=== PATIENT | male | born 1950 | race Caucasian/White ===

== ENCOUNTER 2020-09-13 19:21 | Inpatient (IN) | payer MEDICARE, OTHER ==
[2020-09-13] MEDS ORDERED: MORPHINE SULFATE 10 MG/ML INJ IV ONE (20:54)
[2020-09-13] MEDS ORDERED: ONDANSETRON HCL INJ/PF 4 MG/2 ML SDV IV ONE (20:54)
--- NOTE | 2020-09-13 20:55 | ER Document Report ---
ED Medical Screen (RME) - General Chief Complaint: Abdominal Pain Stated Complaint: ABDOMINAL PAIN Time Seen by Provider: 09/13/20 20:50 Notes: HPI: 70-year-old male who had recent cholecystectomy here at the hospital with Dr. Frank presenting for evaluation of worsened epigastric right upper quadrant pain over the last 24 hours. No chest pain shortness of breath. No fever nausea or vomiting. Patient was concerned about the increase in discomfort so came back in for reevaluation PHYSICAL EXAMINATION: Surgical scars on the abdomen appear intact without erythema. There is mild tenderness to the epigastric region and right upper quadrant on palpation I have greeted and performed a rapid initial assessment of this patient. A comprehensive ED assessment and evaluation of the patient, analysis of test results and completion of medical decision making process will be conducted by an additional ED providers. TRAVEL OUTSIDE OF THE [place] IN LAST 30 DAYS: No - Related Data Allergies/Adverse Reactions: hydrochlorothiazide Allergy (Verified 09/13/20 20:45) Home Medications: allpurinol, chlorthalidone, hydrocodonesaratan Past Medical History - Past Medical History Cardiac Medical History: Reports: Hx Hypertension GI Medical History: Reports: Hx Gastroesophageal Reflux Disease Psychiatric Medical History: Denies: Hx Depression Past Surgical History: Reports: Hx Appendectomy Physical Exam - Vital signs Vitals: Temp Pulse Resp BP Pulse Ox 97.7 F 87 16 107/68 97 09/13/20 19:33 09/13/20 19:33 09/13/20 19:33 09/13/20 19:33 09/13/20 19:33 Course - Vital Signs Vital signs: Temp Pulse Resp BP Pulse Ox 97.7 F 87 16 107/68 97 09/13/20 19:33 09/13/20 19:33 09/13/20 19:33 09/13/20 19:33 09/13/20 19:33
[2020-09-13 21:54] LABS: HEMATOCRIT 42.8 % (37.9-51.0); HEMOGLOBIN 14.1 g/dL (13.5-17.0); MEAN CORPUSCULAR HEMOGLOBIN 29.4 pg (27.0-33.4); MEAN CORPUSCULAR HGB CONC 33.1 g/dL (32.0-36.0); MEAN CORPUSCULAR VOLUME 89 fl (80-97); PLATELET COUNT 387 10^3/uL (150-450); RED BLOOD COUNT 4.81 10^6/uL (4.35-5.55); RED CELL DISTRIBUTION WIDTH 14.5 % (11.5-14.0); WHITE BLOOD COUNT 18.2 10^3/uL (4.0-10.5)
[2020-09-13 21:59] LABS: APPEARANCE,URINE SLIGHTLY-CLOUDY; BILIRUBIN,URINE NEGATIVE (NEGATIVE); COLOR,URINE YELLOW; GLUCOSE, URINE NEGATIVE (NEGATIVE); KETONES,URINE NEGATIVE (NEGATIVE); LEUKOCYTE ESTERASE,URINE NEGATIVE (NEGATIVE); NITRITE,URINE NEGATIVE (NEGATIVE); PROTEIN,URINE NEGATIVE (NEGATIVE); URINE SPECIFIC GRAVITY 1.018
[2020-09-13 22:10] LABS: ABSOLUTE LYMPHOCYTES# (MANUAL) 1.3 10^3/uL (0.5-4.7); ABSOLUTE MONOCYTES # (MANUAL) 0.5 10^3/uL (0.1-1.4); BASOPHILS % (MANUAL) 0 % (0-2); EOSINOPHILS % (MANUAL) 0 % (0-6); LYMPHOCYTES % (MANUAL) 7 % (13-45); MONOCYTES % (MANUAL) 3 % (3-13); SEGMENTED NEUTROPHILS % (MAN) 90 % (42-78); TOTAL CELLS COUNTED 100
[2020-09-13 22:11] LABS: ALBUMIN 4.2 g/dL (3.5-5.0); ALKALINE PHOSPHATASE 542 U/L (38-126); ANION GAP 10 (5-19); ASPARTATE AMINO TRANSFERASE 719 U/L (17-59); BILIRUBIN,DIRECT 1.1 mg/dL (0.0-0.4); BILIRUBIN,TOTAL 1.7 mg/dL (0.2-1.3); BLOOD UREA NITROGEN 33 mg/dL (7-20); CALCIUM 9.8 mg/dL (8.4-10.2); CARBON DIOXIDE 30 mmol/L (22-30); CHLORIDE 94 mmol/L (98-107); GLUCOSE 152 mg/dL (75-110); POTASSIUM 5.4 mmol/L (3.6-5.0); TOTAL PROTEIN 8.1 g/dL (6.3-8.2)
[2020-09-13 22:17] LABS: ANISOCYTOSIS SLIGHT; PLATELET COMMENT ADEQUATE; TOXIC GRANULATION SLIGHT
[2020-09-13] MEDS ORDERED: PIPERACILLIN/TAZOBACTAM 3.375 GM VIAL IV ONE (23:20)
--- NOTE | 2020-09-13 23:42 | ER Document Report ---
ED General - General Chief Complaint: Abdominal Pain Stated Complaint: ABDOMINAL PAIN Time Seen by Provider: 09/13/20 20:50 TRAVEL OUTSIDE OF THE [place] IN LAST 30 DAYS: No - HPI Notes: Patient is a 70-year-old male presents emergency department for evaluation of epigastric and right upper quadrant pain. The patient was admitted to the hospital, discharged on 04 September, after suffering from acute gangrenous cholecystitis and pancreatitis. He states he went home and his course has been primarily uneventful. He has had some intermittent nausea but his pain is been generally improving. This evening he had a hamburger and he started having significant epigastric and right upper quadrant pain. It does not radiate. He has had some "cold sweats" but no juan fevers to his knowledge. Nausea with no episodes of emesis. Mildly diminished bowel movements but otherwise unremarkable. No diarrhea. No melena or hematochezia. He is still urinating. He did have a ZUNILDA drain in place that was removed and outpatient follow-up. He states his pain does feel similar to when he had pancreatitis recently. - Related Data Allergies/Adverse Reactions: hydrochlorothiazide Allergy (Verified 09/13/20 20:45) Home Medications: allpurinol, chlorthalidone, hydrocodone, losaratan Past Medical History - General Information source: Patient - Social History Smoking Status: Never Smoker Family History: None, Reviewed & Not Pertinent Patient has homicidal ideation: No - Past Medical History Cardiac Medical History: Reports: Hx Hypertension GI Medical History: Reports: Hx Gastroesophageal Reflux Disease Musculoskeletal Medical History: Reports Hx Gout Psychiatric Medical History: Denies: Hx Depression Past Surgical History: Reports: Hx Appendectomy, Hx Cholecystectomy Review of Systems - Review of Systems Constitutional: See HPI EENT: No symptoms reported Cardiovascular: No symptoms reported Respiratory: No symptoms reported Gastrointestinal: See HPI Genitourinary: No symptoms reported Musculoskeletal: No symptoms reported Skin: No symptoms reported Neurological/Psychological: No symptoms reported Physical Exam - Vital signs Vitals: Temp Pulse Resp BP Pulse Ox 97.7 F 87 16 107/68 97 09/13/20 19:33 09/13/20 19:33 09/13/20 19:33 09/13/20 19:33 09/13/20 19:33 - Notes Notes: Vital signs reviewed, please refer to chart. Head is normocephalic, atraumatic. Pupils equal round, reactive to light. Neck is supple without meningismus. Heart is regular rate and rhythm. Lungs are clear to auscultation bilaterally. Abdomen is soft, moderately tender in the epigastrium and right upper quadrant without rebound or guarding, normoactive bowel sounds throughout. He has a bandage in place over the right lower quadrant, site of the former Richie-Marcial drain. Otherwise laparoscopic surgical wounds are well approximated and without signs of infection. Extremities without cyanosis, clubbing. Posterior calves are nontender. Peripheral pulses are equal. Skin is warm and dry. Patient is awake, alert, neurological exam is nonfocal. Course - Re-evaluation Re-evalutation: 09/13/20 23:43 Patient presents emergency department for evaluation. He was initially seen through triage. Laboratory investigations and imaging were ordered. Been already given pain medication, nausea medication. His laboratory investigations reveal findings consistent with new acute pancreatitis. Given this information, I did cancel the oral contrast for his IV and oral contrasted CT scan. He was given IV fluids. CT scan is still pending. Given his 18,000 white count, I did cover the patient with antibiotics. Patient is administered his first dose of Zosyn here, which he has tolerated the past. He is currently stable, awaiting CT results. 09/14/20 01:46 CT results show pancreatitis, duodenitis, small amount of fluid in the gallbladder fossa. I discussed the lab findings with Dr. Cleary at 0142. He is concerned that the lab findings are consistent with retained CBD stone. I will notify the patient, contact outside facilities for transfer and evaluation. 09/14/20 02:21 [facility] is not currently excepting medical patients secondary to volume issues. Will contact further facilities. 09/14/20 02:22 09/14/20 02:[address] [facility]. 09/14/20 02:[address] Velásquez, internal medicine physician at [facility]. He agrees that the patient would need evaluated by the biliary service, but unfortunately they do not have any bed availability. He recommends contacting the facility again between 8 and 9 AM. I am currently awaiting a phone call back from [facility]. 09/14/20 02:[address] Jerez, chlorinator on at [facility]. I discussed this patient a great length with her. She states that she is concerned that the patient does not necessarily meet criteria for direct diagnosis of a CBD stone. She recommends MRCP. She does state that the patient could be accepted for transfer to [facility] if the stone is proven to be present. I will order the MRI for the morning. The patient will be kept n.p.o. IV fluids and as needed pain medications ordered. Unfortunately, I agree that the patient will likely require direct visualization of the stone before he can meet transfer criteria. Care of this patient will be turned over to the next ED provider. Patient is notified of changes. 09/15/20 01:58 From chart review, patient's MRI failed to show any sign of CBD stone. Patient admitted to surgicalist service. - Vital Signs Vital signs: Temp Pulse Resp BP Pulse Ox 97.7 F 63 20 107/69 96 09/15/20 00:31 09/15/20 00:31 09/15/20 00:31 09/15/20 00:31 09/15/20 00:31 - Laboratory Results Result Diagrams: 09/13/20 21:18 09/13/20 21:18 Laboratory Results Interpreted: 09/13/20 09/13/20 09/13/20 21:18 21:18 21:30 WBC 18.2 H RDW 14.5 H Seg Neuts % (Manual) 90 H Lymphocytes % (Manual) 7 L Abs Neuts (Manual) 16.4 H Sodium 133.6 L Potassium 5.4 H Chloride 94 L BUN 33 H Creatinine 1.56 H Est GFR ( Amer) 54 L Est GFR (MDRD) Non-Af 44 L Glucose 152 H Total Bilirubin 1.7 H Direct Bilirubin 1.1 H AST 719 H ALT 414 H Alkaline Phosphatase 542 H Lipase 5831.8 H Urine Urobilinogen 4.0 H Critical Laboratory Results Reviewed: No Critical Results - Radiology Results Radiology Results Interpreted: 09/14/20 01:47 Abdomen/Pelvis CT 09/13/20 23:57 IMPRESSION: Status post cholecystectomy. Inflammatory changes in the gallbladder fossa may reflect postcholecystectomy state. Small fluid collection in the immediate subhepatic space could reflect seroma, biloma, or abscess. Findings again suggestive of mild pancreatitis/duodenitis. Multiple nonobstructing renal calculi bilaterally. Fatty infiltrative change to the liver TECHNICAL DOCUMENTATION: Quality ID # 436: Final reports with documentation of one or more dose reduction techniques (e.g., Automated exposure control, adjustment of the mA and/or kV according to patient size, use of iterative reconstruction technique) copyright 2011 [employer]- All Rights Reserved Critical Radiology Results Reviewed: No Critical Results Discharge - Discharge Clinical Impression: Acute kidney injury Biliary acute pancreatitis Qualifiers: Acute pancreatitis complication: no infection or necrosis Qualified Code(s): K85.10 - Biliary acute pancreatitis without necrosis or infection Leukocytosis Qualifiers: Leukocytosis type: unspecified Qualified Code(s): D72.829 - Elevated white blood cell count, unspecified Condition: Stable Disposition: ADMITTED INPATIENT
[2020-09-13] MEDS: NORMAL SALINE 1000 ML 1,000 ML IV PRN (23:57)
--- NOTE | 2020-09-14 01:19 | RADIOLOGY REPORT (SQ) ---
EXAM DESCRIPTION: CT ABDOMEN PELVIS WITH IV CONTRAST COMPLETED DATE/TME: 09/14/2020 00:45 CLINICAL HISTORY: 70 years, Male, pancreatitis COMPARISON: 08/30/2020 CT TECHNIQUE: 775 Images stored on PACS. All CT scanners at this facility use dose modulation, iterative reconstruction, and/or weight based dosing when appropriate to reduce radiation dose to as low as reasonably achievable (ALARA). [facility]: Dose Right [facility]: CareDose [facility]: Dose Right [facility]: Teradose 4D [facility]: Smart [facility] LIMITATIONS: None. FINDINGS: Visualized lung bases are unremarkable. Osseous structures are grossly intact. Diffuse fatty infiltrative change to the liver. Status post cholecystectomy. The spleen, adrenal glands are unremarkable. Multiple nonobstructing renal calculi of the kidneys bilaterally. Kidneys are otherwise unremarkable. Similar to the prior exam, there is mild peripancreatic inflammatory changes, also affecting the proximal duodenum where there is duodenal wall thickening. No discrete or defined fluid collection. No free air. No gross evidence for bowel obstruction. Lipomatous change to the left quadriceps musculature. Occasional sigmoid diverticuli without CT evidence for diverticulitis. Appendix not well seen. No pericecal inflammation. A small loculated fluid collection associated with the inferior margin of the right hepatic lobe/immediate subhepatic space. This measures 2.6 x 1.3 cm. This could reflect seroma, abscess, or biloma. Some inflammatory changes in the region of the gallbladder fossa likely reflects recent postoperative state.. IMPRESSION: Status post cholecystectomy. Inflammatory changes in the gallbladder fossa may reflect postcholecystectomy state. Small fluid collection in the immediate subhepatic space could reflect seroma, biloma, or abscess. Findings again suggestive of mild pancreatitis/duodenitis. Multiple nonobstructing renal calculi bilaterally. Fatty infiltrative change to the liver TECHNICAL DOCUMENTATION: Quality ID # 436: Final reports with documentation of one or more dose reduction techniques (e.g., Automated exposure control, adjustment of the mA and/or kV according to patient size, use of iterative reconstruction technique) copyright 2011 [employer]- All Rights Reserved
[2020-09-14] MEDS: NORMAL SALINE 1000 ML 1,000 ML IV PRN (02:29)
[2020-09-14] MEDS ORDERED: NORMAL SALINE 1000 ML 1,000 ML IV ONE ×2 (02:44→02:45)
[2020-09-14] MEDS ORDERED: MORPHINE SULFATE 10 MG/ML INJ IV PRN ×2 (03:01→10:17)
[2020-09-14] MEDS ORDERED: ONDANSETRON HCL INJ/PF 4 MG/2 ML SDV IV PRN (03:02)
--- NOTE | 2020-09-14 07:06 | ER Document Report ---
ED General - General Chief Complaint: Abdominal Pain Stated Complaint: ABDOMINAL PAIN Time Seen by Provider: 09/13/20 20:50 Notes: Received signout from Dr. Dennison. Patient pending transfer for possible common duct stone. On my review it looks like he is about a week and a half out from a complicated cholecystectomy after gangrenous cholecystitis and is having upper abdominal pain white count fevers and a CT showing probable right upper quadrant infectious process In looking at his CT I do not see the common bile duct, and I performed personally a bedside ultrasound in which I was unable to located but there is no obvious biliary dilatation. He had significant right upper quadrant and epigastric tenderness. I mostly concern for postop infection given his complicated surgery and less worried about a common duct stone given there is no evidence of a biliary picture of LFT elevation. The inflammation in the right upper quadrant can entirely explain all of his lab findings He is pending an MRCP. I will discuss with surgery, but he is already received antibiotics and will continue. He is minimally in pain when I see him. TRAVEL OUTSIDE OF THE [place] IN LAST 30 DAYS: No - Related Data Allergies/Adverse Reactions: hydrochlorothiazide Allergy (Verified 09/13/20 20:45) Home Medications: allpurinol, chlorthalidone, hydrocodone, losaratan Past Medical History - General Information source: Patient - Social History Smoking Status: Never Smoker Family History: None, Reviewed & Not Pertinent Patient has homicidal ideation: No - Past Medical History Cardiac Medical History: Reports: Hx Hypertension GI Medical History: Reports: Hx Gastroesophageal Reflux Disease Musculoskeletal Medical History: Reports Hx Gout Psychiatric Medical History: Denies: Hx Depression Past Surgical History: Reports: Hx Appendectomy, Hx Cholecystectomy Physical Exam - Vital signs Vitals: Temp Pulse Resp BP Pulse Ox 97.7 F 87 16 107/68 97 09/13/20 19:33 09/13/20 19:33 09/13/20 19:33 09/13/20 19:33 09/13/20 19:33 Course - Re-evaluation Re-evalutation: 09/14/20 10:21 MRCP negative for dilation I asked Dr. Gillis to evaluate and admit the patient. We discussed the case at about 10 AM. He stated he will be there shortly. - Vital Signs Vital signs: Temp Pulse Resp BP Pulse Ox 97.6 F 69 16 102/67 94 09/14/20 09:21 09/14/20 09:21 09/14/20 09:21 09/14/20 09:21 09/14/20 09:21 - Laboratory Results Result Diagrams: 09/13/20 21:18 09/13/20 21:18 Laboratory Results Interpreted: 09/13/20 09/13/20 09/13/20 21:18 21:18 21:30 WBC 18.2 H RDW 14.5 H Seg Neuts % (Manual) 90 H Lymphocytes % (Manual) 7 L Abs Neuts (Manual) 16.4 H Sodium 133.6 L Potassium 5.4 H Chloride 94 L BUN 33 H Creatinine 1.56 H Est GFR ( Amer) 54 L Est GFR (MDRD) Non-Af 44 L Glucose 152 H Total Bilirubin 1.7 H Direct Bilirubin 1.1 H AST 719 H ALT 414 H Alkaline Phosphatase 542 H Lipase 5831.8 H Urine Urobilinogen 4.0 H Critical Laboratory Results Reviewed: Yes Attending or Supervising Physician who Reviewed Labs: JOSE LEONE - Radiology Results Critical Radiology Results Reviewed: Yes Attending or Supervising Physician who Reviewed Radiology: JOSE LEONE Discharge - Discharge Clinical Impression: Acute kidney injury Biliary acute pancreatitis Qualifiers: Acute pancreatitis complication: no infection or necrosis Qualified Code(s): K85.10 - Biliary acute pancreatitis without necrosis or infection Leukocytosis Qualifiers: Leukocytosis type: unspecified Qualified Code(s): D72.829 - Elevated white blood cell count, unspecified Condition: Stable Disposition: ADMITTED INPATIENT
[2020-09-14] MEDS ORDERED: PIPERACILLIN/TAZOBACTAM 3.375 GM VIAL IV ONE (07:55)
--- NOTE | 2020-09-14 09:50 | RADIOLOGY REPORT (SQ) ---
EXAM DESCRIPTION: MRI ABDOMEN WITHOUT IMAGES COMPLETED DATE/TIME: 09/14/2020 8:45 am REASON FOR STUDY: elevated LFTs, evaluate for CBD stone COMPARISON: 09/14/2020 CT, 08/31/2020 MRI TECHNIQUE: Noncontrast MRCP. Source and MIP images reviewed. LIMITATIONS: None. FINDINGS: GALLBLADDER: Surgically absent. Small amount of ill-defined fluid within the gallbladder fossa. Additional small amount of fluid along the inferior right hepatic lobe tip measuring 2.0 x 1. 0 cm (series 4, image 24) INTRAHEPATIC DUCTS: Nondilated. EXTRAHEPATIC DUCTS: Common duct is normal caliber measuring 4.3 mm maximally. No dilatation of the p ancreatic duct. No ductal filling defects noted. PANCREAS: Ill-defined peripancreatic stranding and fluid about the pancreatic head. Pancreatic duct is minimally dilated at the head measuring up to 4.1 mm, stable. No filling defect identified. Panc reatic parenchyma is generally homogeneous. No gross mass identified. LIVER, SPLEEN, KIDNEYS, ADRENALS: Small amount of perihepatic fluid as above. Unremarkable hepatic p arenchyma. Small left renal cyst. Known renal stones not well identified. Splenic parenchyma is un remarkable. VESSELS: No evidence of aneurysm. Grossly appropriate flow voids in the major vascular structures. LUNG BASES: Grossly clear. OTHER: Midline soft tissue changes likely from prior cholecystectomy. IMPRESSION: 1. Normal CBD and intrahepatic caliber without intraluminal defect suggestive of choled ocholithiasis. 2. Ill-defined peripancreatic stranding and fluid about the pancreatic head suggestive of pancreatit is. Pancreatic duct is mildly dilated at the head measuring 4.3 mm, stable. 3. Status post cholecystectomy. Stable small volume fluid within the gallbladder fossa and along th e right hepatic tip. No discrete drainable collection. TECHNICAL DOCUMENTATION: JOB ID: [id number] 2010 [employer]- All Rights Reserved Reading location - IP/workstation name: [email or web address]
[2020-09-14] MEDS ORDERED: POTASSI CL 20 MEQ/D5-1/2NS 1L 1,000 ML IV PRN (10:17)
--- NOTE | 2020-09-14 10:30 | PDOC H&P ---
History of Present Illness History of Present Illness: CHLOE IVEY is a 70 year old male presents emergency department for evaluation of epigastric and right upper quadrant pain. The patient was admitted to the hospital, discharged on 04 September, after suffering from acute gangrenous cholecystitis and pancreatitis. He states he went home and his course has been primarily uneventful. He has had some intermittent nausea but his pain is been generally improving. iYesterday evening he had a hamburger and he started having significant epigastric and right upper quadrant pain. It does not radiate. He has had some "cold sweats" but no juan fevers to his knowledge. Nausea with no episodes of emesis. Mildly diminished bowel movement s but otherwise unremarkable. No diarrhea. No melena or hematochezia. He is still urinating. He did have a ZUNILDA drain in place that was removed and outpatient follow-up. He states his pain does feel similar to when he had pancreatitis recently Past Medical History Cardiac Medical History: Reports: Hypertension GI Medical History: Reports: Gastroesophageal Reflux Disease Musculoskeltal Medical History: Reports: Gout Psychiatric Medical History: Denies: Depression Past Surgical History Past Surgical History: Reports: Appendectomy, Cholecystectomy Social History Smoking Status: Never Smoker Frequency of Alcohol Use: None Hx Recreational Drug Use: No Family History Family History: None, Reviewed & Not Pertinent Parental Family History Reviewed: No Children Family History Reviewed: NA Sibling(s) Family History Reviewed.: NA Medication/Allergy Home Medications: Allopurinol [Zyloprim 300 mg Tablet] 300 mg PO DAILY 08/30/20 Chlorthalidone [Hygroton 25 mg Tablet] 12.5 mg PO DAILY 08/30/20 Olmesartan Medoxomil [Benicar] 20 mg PO DAILY 08/30/20 Hydrocodone/Acetaminophen [[place] 10-325 mg Tablet] 1 tab PO Q6HP PRN #20 tablet 09/04/20 Allergies/Adverse Reactions: hydrochlorothiazide Allergy (Verified 09/13/20 20:45) Physical Exam Vital Signs: Temp Pulse Resp BP Pulse Ox 97.6 F 69 16 102/67 94 09/14/20 09:21 09/14/20 09:21 09/14/20 09:21 09/14/20 09:21 09/14/20 09:21 Intake & Output 09/13/20 09/14/20 09/15/20 06:59 06:59 06:59 Intake Total 2000 Balance 2000 Weight 91.5 kg General appearance: PRESENT: no acute distress Head exam: PRESENT: normocephalic Eye exam: PRESENT: EOMI Ear exam: PRESENT: normal external ear exam Mouth exam: PRESENT: moist Neck exam: PRESENT: full ROM Respiratory exam: PRESENT: clear to auscultation saad Cardiovascular exam: PRESENT: RRR Pulses: PRESENT: normal radial pulses, normal femoral pulses Vascular exam: PRESENT: normal capillary refill Breast: PRESENT: Normal GI/Abdominal exam: PRESENT: soft, tenderness - minimal rt upper quadrent pain Rectal exam: PRESENT: deferred Extremities exam: PRESENT: full ROM Musculoskeletal exam: PRESENT: full ROM Neurological exam: PRESENT: alert, awake, oriented to person, oriented to place Focused psych exam: PRESENT: other Skin exam: PRESENT: dry Results Laboratory Results: 09/13/20 21:18 09/13/20 21:18 09/13/20 09/13/20 09/13/20 21:18 21:18 21:30 WBC 18.2 H RBC 4.81 Hgb 14.1 Hct 42.8 MCV 89 MCH 29.4 MCHC 33.1 RDW 14.5 H Plt Count 387 Seg Neutrophils % Not Reportable Sodium 133.6 L Potassium 5.4 H Chloride 94 L Carbon Dioxide 30 Anion Gap 10 BUN 33 H Creatinine 1.56 H Est GFR ( Amer) 54 L Glucose 152 H Calcium 9.8 Total Bilirubin 1.7 H AST 719 H Alkaline Phosphatase 542 H Total Protein 8.1 Albumin 4.2 Lipase 5831.8 H Urine Color YELLOW Urine Appearance SLIGHTLY-CLOUDY Urine pH 6.0 Ur Specific Pel[place] 1.018 Urine Protein NEGATIVE Urine Glucose (UA) NEGATIVE Urine Ketones NEGATIVE Urine Blood NEGATIVE Urine Nitrite NEGATIVE Ur Leukocyte Esterase NEGATIVE Urine WBC (Auto) 2 Urine RBC (Auto) 4 Impressions: Abdomen/Pelvis CT 09/13/20 23:57 IMPRESSION: Status post cholecystectomy. Inflammatory changes in the gallbladder fossa may reflect postcholecystectomy state. Small fluid collection in the immediate subhepatic space could reflect seroma, biloma, or abscess. Findings again suggestive of mild pancreatitis/duodenitis. Multiple nonobstructing renal calculi bilaterally. Fatty infiltrative change to the liver TECHNICAL DOCUMENTATION: Quality ID # 436: Final reports with documentation of one or more dose reduction techniques (e.g., Automated exposure control, adjustment of the mA and/or kV according to patient size, use of iterative reconstruction technique) copyright 2011 [employer]- All Rights Reserved Abdomen MRI 09/14/20 03:00 IMPRESSION: 1. Normal CBD and intrahepatic caliber without intraluminal defect suggestive of choledocholithiasis. 2. Ill-defined peripancreatic stranding and fluid about the pancreatic head sug gestive of pancreatitis. Pancreatic duct is mildly dilated at the head measuring 4.3 mm, stable. 3. Status post cholecystectomy. Stable small volume fluid within the gallbladder fossa and along the right hepatic tip. No discrete drainable collection. Assessment & Plan - Time Anticipated Discharge Disposition: Home, Self Care Anticipated Discharge Timeframe: unk - Plan Summary Plan Summary: s/p lap yoanna for gangrenous cholecystitis approx 10 days ago now with ruq pain phlegmon in ruq on ct fever, wbc mrcp neg for retained stones will admit for iv abx and observation
[2020-09-14] MEDS: POTASSI CL 20 MEQ/D5-1/2NS 1L 1,000 ML IV PRN ×2 (11:21→23:59)
[2020-09-14] MEDS: AMPICILLIN SODIUM/SULBACTAM NA 3 GM in NORMAL SALINE 100 ML IV SCH ×2 (16:38→21:16)
[2020-09-14] MEDS: FAMOTIDINE INJ/PF 20 MG/2 ML SDV IV SCH (21:16)
[2020-09-15] MEDS: AMPICILLIN SODIUM/SULBACTAM NA 3 GM in NORMAL SALINE 100 ML IV SCH ×3 (05:51→21:07)
[2020-09-15 06:13] LABS: HEMATOCRIT 35.4 % (37.9-51.0); MEAN CORPUSCULAR HEMOGLOBIN 30.2 pg (27.0-33.4); MEAN CORPUSCULAR VOLUME 89 fl (80-97); RED BLOOD COUNT 3.99 10^6/uL (4.35-5.55); RED CELL DISTRIBUTION WIDTH 14.4 % (11.5-14.0); WHITE BLOOD COUNT 5.9 10^3/uL (4.0-10.5)
[2020-09-15 06:32] LABS: ALBUMIN 3.3 g/dL (3.5-5.0); ALKALINE PHOSPHATASE 297 U/L (38-126); ANION GAP 7 (5-19); ASPARTATE AMINO TRANSFERASE 140 U/L (17-59); BILIRUBIN,DIRECT 0.2 mg/dL (0.0-0.4); BILIRUBIN,TOTAL 0.6 mg/dL (0.2-1.3); BLOOD UREA NITROGEN 19 mg/dL (7-20); CALCIUM 9.1 mg/dL (8.4-10.2); CARBON DIOXIDE 28 mmol/L (22-30); CHLORIDE 99 mmol/L (98-107); GLUCOSE 118 mg/dL (75-110); POTASSIUM 4.8 mmol/L (3.6-5.0); TOTAL PROTEIN 6.6 g/dL (6.3-8.2)
[2020-09-15 06:56] LABS: ABSOLUTE LYMPHOCYTES# (MANUAL) 1.8 10^3/uL (0.5-4.7); ABSOLUTE MONOCYTES # (MANUAL) 0.4 10^3/uL (0.1-1.4); EOSINOPHILS % (MANUAL) 4 % (0-6); LYMPHOCYTES % (MANUAL) 31 % (13-45); MONOCYTES % (MANUAL) 6 % (3-13); SEGMENTED NEUTROPHILS % (MAN) 55 % (42-78); TOTAL CELLS COUNTED 100
[2020-09-15 06:58] LABS: PLATELET CLUMPS PC; PLATELET COMMENT ADEQUATE; PLATELET COUNT 255 10^3/uL (150-450)
[2020-09-15 06:59] LABS: BASOPHILS % (MANUAL) 4 % (0-2)
[2020-09-15] MEDS: POTASSI CL 20 MEQ/D5-1/2NS 1L 1,000 ML IV PRN (09:39)
[2020-09-15] MEDS: FAMOTIDINE INJ/PF 20 MG/2 ML SDV IV SCH ×2 (09:45→21:07)
--- NOTE | 2020-09-15 11:28 | PDOC PROGRESS REPORT ---
Subjective Date:: 09/15/20 Subjective:: No more abdominal pains, positive flatus Reason For Visit: S/P CHOLECYTECTOMY, ABDOMINAL INFECTION Physical Exam Vital Signs: Temp Pulse Resp BP Pulse Ox 97.7 F 60 18 119/82 94 09/15/20 07:58 09/15/20 07:58 09/15/20 07:58 09/15/20 07:58 09/15/20 07:58 Intake & Output 09/14/20 09/15/20 09/16/20 06:59 06:59 06:59 Intake Total 1999 2124 1000 Output Total 200 Balance 1999 1924 1000 Weight 91.5 kg 90.3 kg Exam: Abdomen is soft and nontender. Incisions from cholecystectomy 2 weeks ago look clean and dry. Results Laboratory Results: 09/15/20 05:37 09/15/20 05:37 09/15/20 09/15/20 05:37 05:37 WBC 5.9 RBC 3.99 L Hgb 12.0 L D Hct 35.4 L MCV 89 MCH 30.2 MCHC 34.0 RDW 14.4 H Plt Count 255 Seg Neutrophils % Not Reportable Sodium 134.0 L Potassium 4.8 Chloride 99 Carbon Dioxide 28 Anion Gap 7 BUN 19 Creatinine 1.07 Est GFR ( Amer) > 60 Glucose 118 H Calcium 9.1 Total Bilirubin 0.6 AST 140 H Alkaline Phosphatase 297 H Total Protein 6.6 Albumin 3.3 L Lipase 2442.0 H Impressions: Abdomen/Pelvis CT 09/13/20 23:57 IMPRESSION: Status post cholecystectomy. Inflammatory changes in the gallbladder fossa may reflect postcholecystectomy state. Small fluid collection in the immediate subhepatic space could reflect seroma, biloma, or abscess. Findings again suggestive of mild pancreatitis/duodenitis. Multiple nonobstructing renal calculi bilaterally. Fatty infiltrative change to the liver TECHNICAL DOCUMENTATION: Quality ID # [id number]: Final reports with documentation of one or more dose reduction techniques (e.g., Automated exposure control, adjustment of the mA and/or kV according to patient size, use of iterative reconstruction technique) copyright 2011 [employer]- All Rights Reserved Abdomen MRI 09/14/20 03:00 IMPRESSION: 1. Normal CBD and intrahepatic caliber without intraluminal defect suggestive of choledocholithiasis. 2. Ill-defined peripancreatic stranding and fluid about the pancreatic head suggestive of pancreatitis. Pancreatic duct is mildly dilated at the head measuring 4.3 mm, stable. 3. Status post cholecystectomy. Stable small volume fluid within the gallbladder fossa and along the right hepatic tip. No discrete drainable collection. Assessment & Plan - Diagnosis (1) Biliary acute pancreatitis Qualifiers: Acute pancreatitis complication: no infection or necrosis Qualified Code(s): K85.10 - Biliary acute pancreatitis without necrosis or infection Is this a current diagnosis for this admission?: Yes (2) Leukocytosis Qualifiers: Leukocytosis type: unspecified Qualified Code(s): D72.829 - Elevated white blood cell count, unspecified Is this a current diagnosis for this admission?: Yes (3) Pancreatitis Qualifiers: Chronicity: acute Pancreatitis type: idiopathic Acute pancreatitis complication: unspecified Qualified Code(s): K85.00 - Idiopathic acute pancreatitis without necrosis or infection Is this a current diagnosis for this admission?: Yes - Time Anticipated Discharge Disposition: Home, Self Care Anticipated Discharge Timeframe: within 72 hours Critical Time spent with patient: 15-24 minutes - Inpatient Certification Medical Necessity: Need Close Monitoring Due to Risk of Patient Decompensation, Need For IV Fluids, Risk of Complication if Not Cared For in Hospital - Plan Summary Plan Summary: The 2 with the. Pancreatitis with elevated LFTs after cholecystectomy for gangrenous gallbladder about 2 weeks ago. Lipase and LFTs were decreased this morning. Abdomen is soft. Denies any pains. Positive flatus. Plans: Start on clear liquids today. Repeat blood work in a.m. Anticipate discharge the next 48 hours
[2020-09-15 12:18] LABS: PATH REVIEW PATHOLOGIST REVIEWED
[2020-09-16] MEDS: POTASSI CL 20 MEQ/D5-1/2NS 1L 1,000 ML IV PRN ×3 (02:05→19:42)
[2020-09-16] MEDS: AMPICILLIN SODIUM/SULBACTAM NA 3 GM in NORMAL SALINE 100 ML IV SCH ×3 (06:52→21:46)
[2020-09-16 06:58] LABS: ABSOLUTE BASOPHILS # (AUTO) 0.1 10^3/uL (0.0-0.2); ABSOLUTE EOSINOPHILS # (AUTO) 0.2 10^3/uL (0.0-0.6); ABSOLUTE LYMPHOCYTES (AUTO) 1.1 10^3/uL (0.5-4.7); ABSOLUTE MONOCYTES (AUTO) 0.5 10^3/uL (0.1-1.4); ABSOLUTE NEUT (AUTO) 3.2 10^3/uL (1.7-8.2); BASOPHILS % (AUTO) 2.3 % (0-2); EOSINOPHILS % (AUTO) 3.2 % (0-6); HEMATOCRIT 36.8 % (37.9-51.0); HEMOGLOBIN 12.4 g/dL (13.5-17.0); LYMPHOCYTES % (AUTO) 22.2 % (13-45); MEAN CORPUSCULAR HEMOGLOBIN 29.8 pg (27.0-33.4); MEAN CORPUSCULAR HGB CONC 33.6 g/dL (32.0-36.0); MEAN CORPUSCULAR VOLUME 89 fl (80-97); MONOCYTES % (AUTO) 9.1 % (3-13); PLATELET COUNT 262 10^3/uL (150-450); RED BLOOD COUNT 4.16 10^6/uL (4.35-5.55); RED CELL DISTRIBUTION WIDTH 14.2 % (11.5-14.0); SEGMENTED NEUTROPHILS % (AUTO) 63.2 % (42-78); TOTAL CELLS COUNTED % (AUTO) 100 %; WHITE BLOOD COUNT 5.1 10^3/uL (4.0-10.5)
[2020-09-16 07:21] LABS: ANION GAP 5 (5-19); BLOOD UREA NITROGEN 13 mg/dL (7-20); CALCIUM 9.2 mg/dL (8.4-10.2); CARBON DIOXIDE 29 mmol/L (22-30); CHLORIDE 101 mmol/L (98-107); GLUCOSE 127 mg/dL (75-110); POTASSIUM 4.6 mmol/L (3.6-5.0)
[2020-09-16] MEDS: FAMOTIDINE INJ/PF 20 MG/2 ML SDV IV SCH ×2 (09:04→21:46)
[2020-09-16 09:36] LABS: ALBUMIN 3.2 g/dL (3.5-5.0); ALKALINE PHOSPHATASE 242 U/L (38-126); ASPARTATE AMINO TRANSFERASE 60 U/L (17-59); BILIRUBIN,DIRECT 0.2 mg/dL (0.0-0.4); BILIRUBIN,TOTAL 0.5 mg/dL (0.2-1.3); TOTAL PROTEIN 6.5 g/dL (6.3-8.2)
--- NOTE | 2020-09-16 10:24 | PDOC PROGRESS REPORT ---
Subjective Date:: 09/16/20 Subjective:: Denies any abdominal pains. Had bowel movement this morning. Reason For Visit: S/P CHOLECYTECTOMY, ABDOMINAL INFECTION Physical Exam Vital Signs: Temp Pulse Resp BP Pulse Ox 97.8 F 63 18 130/81 H 94 09/16/20 07:42 09/16/20 07:42 09/16/20 07:42 09/16/20 07:42 09/16/20 07:42 Intake & Output 09/15/20 09/16/20 09/17/20 06:59 06:59 06:59 Intake Total 2125 2660 1000 Output Total 200 Balance 1925 2660 1000 Weight 90.3 kg 93.1 kg Exam: Abdomen is soft with practically no tenderness. Results Laboratory Results: 09/16/20 06:39 09/16/20 06:39 09/16/20 09/16/20 09/16/20 06:39 06:39 06:39 WBC 5.1 RBC 4.16 L Hgb 12.4 L Hct 36.8 L MCV 89 MCH 29.8 MCHC 33.6 RDW 14.2 H Plt Count 262 Seg Neutrophils % 63.2 Sodium 135.3 L Potassium 4.6 Chloride 101 Carbon Dioxide 29 Anion Gap 5 BUN 13 Creatinine 1.05 Est GFR ( Amer) > 60 Glucose 127 H Calcium 9.2 Total Bilirubin 0.5 AST 60 H Alkaline Phosphatase 242 H Total Protein 6.5 Albumin 3.2 L Lipase 3582.6 H Impressions: Abdomen/Pelvis CT 09/13/20 23:57 IMPRESSION: Status post cholecystectomy. Inflammatory changes in the gallbladder fossa may reflect postcholecystectomy state. Small fluid collection in the immediate subhepatic space could reflect seroma, biloma, or abscess. Findings again suggestive of mild pancreatitis/duodenitis. Multiple nonobstructing renal calculi bilaterally. Fatty infiltrative change to the liver TECHNICAL DOCUMENTATION: Quality ID # [id number]: Final reports with documentation of one or more dose reduction techniques (e.g., Automated exposure control, adjustment of the mA and/or kV according to patient size, use of iterative reconstruction technique) copyright 2011 [employer]- All Rights Reserved Abdomen MRI 09/14/20 03:00 IMPRESSION: 1. Normal CBD and intrahepatic caliber without intraluminal defect suggestive of choledocholithiasis. 2. Ill-defined peripancreatic stranding and fluid about the pancreatic head suggestive of pancreatitis. Pancreatic duct is mildly dilated at the head measuring 4.3 mm, stable. 3. Status post cholecystectomy. Stable small volume fluid within the gallbladder fossa and along the right hepatic tip. No discrete drainable collection. Assessment & Plan - Diagnosis (1) Biliary acute pancreatitis Qualifiers: Acute pancreatitis complication: no infection or necrosis Qualified Code(s): K85.10 - Biliary acute pancreatitis without necrosis or infection Is this a current diagnosis for this admission?: Yes (2) Leukocytosis Qualifiers: Leukocytosis type: unspecified Qualified Code(s): D72.829 - Elevated white blood cell count, unspecified Is this a current diagnosis for this admission?: Yes (3) Pancreatitis Qualifiers: Chronicity: acute Pancreatitis type: idiopathic Acute pancreatitis complication: unspecified Qualified Code(s): K85.00 - Idiopathic acute pancreatitis without necrosis or infection Is this a current diagnosis for this admission?: Yes - Time Anticipated Discharge Disposition: Home, Self Care Anticipated Discharge Timeframe: within 72 hours Critical Time spent with patient: 15-24 minutes - Inpatient Certification Medical Necessity: Need for IV Antibiotics, Risk of Complication if Not Cared For in Hospital - Plan Summary Plan Summary: 70-year-old male post cholecystectomy for gangrenous gallbladder about 2 weeks ago. Who was quite doing well until he came back after eating hamburger with epigastric pains. Was then admitted for elevated lipase and the LFTs. Today is day 2 of admission. His white count is now normal and LFTs are trending down but the lipase slightly went back up to about 3500 from yesterday. Is tolerating clear liquids and the abdomen is soft and denies any abdominal pains. He did have some bowel movement this morning. Plans: Continue IV antibiotics for the next 48 to 72 hours. Gradually increase diet. Continue monitor lipase and LFTs.
[2020-09-16] MEDS ORDERED: DIPHENHYDRAMINE HCL 50 MG CAPSULE PO PRN (21:06)
[2020-09-17] MEDS: POTASSI CL 20 MEQ/D5-1/2NS 1L 1,000 ML IV PRN (04:43)
[2020-09-17] MEDS: AMPICILLIN SODIUM/SULBACTAM NA 3 GM in NORMAL SALINE 100 ML IV SCH (05:43)
[2020-09-17 06:31] LABS: ABSOLUTE BASOPHILS # (AUTO) 0.1 10^3/uL (0.0-0.2); ABSOLUTE EOSINOPHILS # (AUTO) 0.2 10^3/uL (0.0-0.6); ABSOLUTE LYMPHOCYTES (AUTO) 1.1 10^3/uL (0.5-4.7); ABSOLUTE MONOCYTES (AUTO) 0.4 10^3/uL (0.1-1.4); ABSOLUTE NEUT (AUTO) 2.9 10^3/uL (1.7-8.2); BASOPHILS % (AUTO) 1.4 % (0-2); EOSINOPHILS % (AUTO) 3.4 % (0-6); HEMATOCRIT 37.6 % (37.9-51.0); HEMOGLOBIN 12.5 g/dL (13.5-17.0); LYMPHOCYTES % (AUTO) 23.1 % (13-45); MEAN CORPUSCULAR HEMOGLOBIN 29.3 pg (27.0-33.4); MEAN CORPUSCULAR HGB CONC 33.1 g/dL (32.0-36.0); MEAN CORPUSCULAR VOLUME 88 fl (80-97); MONOCYTES % (AUTO) 8.6 % (3-13); PLATELET COUNT 254 10^3/uL (150-450); RED BLOOD COUNT 4.25 10^6/uL (4.35-5.55); RED CELL DISTRIBUTION WIDTH 14.3 % (11.5-14.0); SEGMENTED NEUTROPHILS % (AUTO) 63.5 % (42-78); TOTAL CELLS COUNTED % (AUTO) 100 %; WHITE BLOOD COUNT 4.6 10^3/uL (4.0-10.5)
[2020-09-17 06:54] LABS: ANION GAP 5 (5-19); BLOOD UREA NITROGEN 12 mg/dL (7-20); CALCIUM 9.3 mg/dL (8.4-10.2); CARBON DIOXIDE 28 mmol/L (22-30); CHLORIDE 103 mmol/L (98-107); GLUCOSE 106 mg/dL (75-110); POTASSIUM 4.4 mmol/L (3.6-5.0)
[2020-09-17 06:55] LABS: ALBUMIN 3.1 g/dL (3.5-5.0); ALKALINE PHOSPHATASE 197 U/L (38-126); ASPARTATE AMINO TRANSFERASE 38 U/L (17-59); BILIRUBIN,DIRECT 0.2 mg/dL (0.0-0.4); BILIRUBIN,TOTAL 0.5 mg/dL (0.2-1.3); TOTAL PROTEIN 6.3 g/dL (6.3-8.2)
--- NOTE | 2020-09-17 10:51 | PDOC PROGRESS REPORT ---
Subjective Date:: 09/17/20 Subjective:: Patient has no complaints, sitting in chair, states he is expecting to go home. Tolerating full liquids. Not taking pain medication. IV in left arm now leaking Reason For Visit: S/P CHOLECYTECTOMY, ABDOMINAL INFECTION Physical Exam Vital Signs: Temp Pulse Resp BP Pulse Ox 97.8 F 64 16 133/84 H 97 09/17/20 03:38 09/17/20 03:38 09/17/20 03:38 09/17/20 03:38 09/17/20 03:38 Intake & Output 09/16/20 09/17/20 09/18/20 06:59 06:59 06:59 Intake Total 2660 3770 Balance 2660 3770 Weight 93.1 kg 94.1 kg General appearance: PRESENT: no acute distress GI/Abdominal exam: PRESENT: other - Soft, nontender no peritoneal signs no rigidity. Laparoscopic incisions from previous cholecystectomy healing reasonably well, with some eschar Results Laboratory Results: 09/17/20 06:15 09/17/20 06:15 09/17/20 09/17/20 09/17/20 06:15 06:15 06:15 WBC 4.6 RBC 4.25 L Hgb 12.5 L Hct 37.6 L MCV 88 MCH 29.3 MCHC 33.1 RDW 14.3 H Plt Count 254 Seg Neutrophils % 63.5 Sodium 136.1 L Potassium 4.4 Chloride 103 Carbon Dioxide 28 Anion Gap 5 BUN 12 Creatinine 1.03 Est GFR ( Amer) > 60 Glucose 106 Calcium 9.3 Total Bilirubin 0.5 AST 38 Alkaline Phosphatase 197 H Total Protein 6.3 Albumin 3.1 L Lipase 3112.5 H Impressions: Abdomen/Pelvis CT 09/13/20 23:57 IMPRESSION: Status post cholecystectomy. Inflammatory changes in the gallbladder fossa may reflect postcholecystectomy state. Small fluid collection in the immediate subhepatic space could reflect seroma, biloma, or abscess. Findings again suggestive of mild pancreatitis/duodenitis. Multiple nonobstructing renal calculi bilaterally. Fatty infiltrative change to the liver TECHNICAL DOCUMENTATION: Quality ID # [id number]: Final reports with documentation of one or more dose reduction techniques (e.g., Automated exposure control, adjustment of the mA and/or kV according to patient size, use of iterative reconstruction technique) copyright 2011 [employer]- All Rights Reserved Abdomen MRI 09/14/20 03:00 IMPRESSION: 1. Normal CBD and intrahepatic caliber without intraluminal defect suggestive of choledocholithiasis. 2. Ill-defined peripancreatic stranding and fluid about the pancreatic head suggestive of pancreatitis. Pancreatic duct is mildly dilated at the head measuring 4.3 mm, stable. 3. Status post cholecystectomy. Stable small volume fluid within the gallbladder fossa and along the right hepatic tip. No discrete drainable collection. Assessment & Plan - Diagnosis (1) Pancreatitis Qualifiers: Chronicity: acute Pancreatitis type: idiopathic Acute pancreatitis complication: unspecified Qualified Code(s): K85.00 - Idiopathic acute pancreatitis without necrosis or infection Is this a current diagnosis for this admission?: Yes Plan: Impression: Hospital day 4 for acute pancreatitis following recent hospitalization for presumptive gallstone pancreatitis, cholecystitis followed by laparoscopic cholecystectomy. Clinically improved, with all laboratory parameters normalizing except lipase. Plan: 1. Keep on low-fat low protein full liquid diet 2. Discontinue all other support 3. Anticipate discharge home later today. This was discussed with patient. (2) Status post laparoscopic cholecystectomy Is this a current diagnosis for this admission?: Yes - Time Anticipated Discharge Disposition: Home, Self Care Anticipated Discharge Timeframe: within 24 hours
[2020-09-17] MEDS ORDERED: FAMOTIDINE 20 MG TABLET PO SCH (11:00)
[2020-09-17 12:46] VITALS: BP 128/82
--- NOTE | 2020-09-26 13:07 | PDOC DISCHARGE SUMMARY ---
General - Admit/Disc Date/PCP Admission Date/Primary Care Provider: 09/14/20 10:46 Discharge Date: 09/17/20 - Discharge Diagnosis Final Diagnosis: Chronic pancreatitis; status post laparoscopic cholecystectomy - Assessment Summary: Patient is a 70-year-old white male 1.5 weeks status post laparoscopic cholecystectomy [facility] for gallstone pancreatitis. Patient d id well initially, then presented back to the emergency department on 13 September complaining of abdominal pain, anorexia. Is found to have abdominal tenderness, leukocytosis of 18,000, and CT scan findings consistent with possible pancreatitis, possible phlegmon. MRCP showed mild postoperative changes and consistent with mild pancreatitis; no evidence of retained common bile duct stone.. Patient was admitted for IV fluids antibiotics. He clinically improved. There was no indication for surgical intervention. By the fifth hospital day he was felt to receive maximum hospitalizations discharged home Plan: 1. Low residue, modified diet 2. Heavy lifting pushing pulling or bending; may take Tylenol or Motrin as needed pain 3. Patient to follow-up with [facility] in 1 to 2 weeks. - Additional Information Resuscitation Status: Full Code Discharge Diet: As Tolerated Discharge Activity: Activity As Tolerated, Balance Activity w/Rest Referrals: VANESSA MURDOCK MD [ACTIVE STAFF] - (follow up in 2-3 weeks) Home Medications: Allopurinol [Zyloprim 300 mg Tablet] 300 mg PO DAILY 08/30/20 Chlorthalidone [Hygroton 25 mg Tablet] 12.5 mg PO DAILY 08/30/20 Olmesartan Medoxomil [Benicar] 20 mg PO DAILY 08/30/20 Hydrocodone/Acetaminophen [Mulino 10-325 mg Tablet] 1 tab PO Q6HP PRN #20 tablet 09/04/20 History of Present Illiness History of Present Illness: CHLOE IVEY is a 70 year old male Physical Exam Vital Signs: Temp Pulse Resp BP Pulse Ox 97.8 F 64 16 128/82 H 97 09/17/20 12:38 09/17/20 12:38 09/17/20 12:38 09/17/20 12:38 09/17/20 12:38 Results Laboratory Results: WBC 4.6 10^3/uL (4.0-10.5) 09/17/20 06:15 RBC 4.25 10^6/uL (4.35-5.55) L 09/17/20 06:15 Hgb 12.5 g/dL (13.5-17.0) L 09/17/20 06:15 Hct 37.6 % (37.9-51.0) L 09/17/20 06:15 MCV 88 fl (80-97) 09/17/20 06:15 MCH 29.3 pg (27.0-33.4) 09/17/20 06:15 MCHC 33.1 g/dL (32.0-36.0) 09/17/20 06:15 RDW 14.3 % (11.5-14.0) H 09/17/20 06:15 Plt Count 254 10^3/uL (150-450) 09/17/20 06:15 Lymph % (Auto) 23.1 % (13-45) 09/17/20 06:15 [place] % (Auto) 8.6 % (3-13) 09/17/20 06:15 Eos % (Auto) 3.4 % (0-6) 09/17/20 06:15 Baso % (Auto) 1.4 % (0-2) 09/17/20 06:15 Absolute Neuts (auto) 2.9 10^3/uL (1.7-8.2) 09/17/20 06:15 Absolute Lymphs (auto) 1.1 10^3/uL (0.5-4.7) 09/17/20 06:15 Absolute Monos (auto) 0.4 10^3/uL (0.1-1.4) 09/17/20 06:15 Absolute Eos (auto) 0.2 10^3/uL (0.0-0.6) 09/17/20 06:15 Absolute Basos (auto) 0.1 10^3/uL (0.0-0.2) 09/17/20 06:15 Total Counted 100 09/15/20 05:37 Seg Neutrophils % 63.5 % (42-78) 09/17/20 06:15 Seg Neuts % (Manual) 55 % (42-78) 09/15/20 05:37 Lymphocytes % (Manual) 31 % (13-45) 09/15/20 05:37 Monocytes % (Manual) 6 % (3-13) 09/15/20 05:37 Eosinophils % (Manual) 4 % (0-6) 09/15/20 05:37 Basophils % (Manual) 4 % (0-2) H 09/15/20 05:37 Abs Neuts (Manual) 3.2 10^3/uL (1.7-8.2) 09/15/20 05:37 Abs Lymphs (Manual) 1.8 10^3/uL (0.5-4.7) 09/15/20 05:37 Abs Monocytes (Manual) 0.4 10^3/uL (0.1-1.4) 09/15/20 05:37 Absolute Eos (Manual) 0.2 10^3/uL (0.0-0.6) 09/15/20 05:37 Abs Basophils (Manual) 0.2 10^3/uL (0.0-0.2) 09/15/20 05:37 Toxic Granulation SLIGHT 09/13/20 21:18 Clumped Platelets PC 09/15/20 05:37 Platelet Comment ADEQUATE 09/15/20 05:37 Anisocytosis SLIGHT 09/13/20 21:18 Sodium 136.1 mmol/L (137-145) L 09/17/20 06:15 Potassium 4.4 mmol/L (3.6-5.0) 09/17/20 06:15 Chloride 103 mmol/L (98-107) 09/17/20 06:15 Carbon Dioxide 28 mmol/L (22-30) 09/17/20 06:15 Anion Gap 5 (5-19) 09/17/20 06:15 BUN 12 mg/dL (7-20) 09/17/20 06:15 Creatinine 1.03 mg/dL (0.52-1.25) 09/17/20 06:15 Est GFR ( Amer) > 60 (>60) 09/17/20 06:15 Est GFR (MDRD) Non-Af > 60 (>60) 09/17/20 06:15 Glucose 106 mg/dL (75-110) 09/17/20 06:15 Calcium 9.3 mg/dL (8.4-10.2) 09/17/20 06:15 Total Bilirubin 0.5 mg/dL (0.2-1.3) 09/17/20 06:15 Direct Bilirubin 0.2 mg/dL (0.0-0.4) 09/17/20 06:15 Neonat Total Bilirubin Not Reportable 09/17/20 06:15 Neonat Direct Bilirubin Not Reportable 09/17/20 06:15 Neonat Indirect Bili Not Reportable 09/17/20 06:15 AST 38 U/L (17-59) 09/17/20 06:15 ALT 117 U/L (<50) H 09/17/20 06:15 Alkaline Phosphatase 197 U/L (38-126) H 09/17/20 06:15 Total Protein 6.3 g/dL (6.3-8.2) 09/17/20 06:15 Albumin 3.1 g/dL (3.5-5.0) L 09/17/20 06:15 Lipase 3112.5 U/L (23-300) H 09/17/20 06:15 Urine Color YELLOW 09/13/20 21:30 Urine Appearance SLIGHTLY-CLOUDY 09/13/20 21:30 Urine pH 6.0 (5.0-9.0) 09/13/20 21:30 Ur Specific [place] 1.018 09/13/20 21:30 Urine Protein NEGATIVE mg/dL (NEGATIVE) 09/13/20 21:30 Urine Glucose (UA) NEGATIVE mg/dL (NEGATIVE) 09/13/20 21:30 Urine Ketones NEGATIVE mg/dL (NEGATIVE) 09/13/20 21:30 Urine Blood NEGATIVE (NEGATIVE) 09/13/20 21:30 Urine Nitrite NEGATIVE (NEGATIVE) 09/13/20 21:30 Urine Bilirubin NEGATIVE (NEGATIVE) 09/13/20 21:30 Urine Urobilinogen 4.0 mg/dL (<2.0) H 09/13/20 21:30 Ur Leukocyte Esterase NEGATIVE (NEGATIVE) 09/13/20 21:30 Urine WBC (Auto) 2 /HPF 09/13/20 21:30 Urine RBC (Auto) 4 /HPF 09/13/20 21:30 Urine Bacteria (Auto) TRACE /HPF 09/13/20 21:30 Squamous Epi Cells Auto <1 /HPF 09/13/20 21:30 Urine Mucus (Auto) FEW /LPF 09/13/20 21:30 Urine Ascorbic Acid NEGATIVE (NEGATIVE) 09/13/20 21:30 Influenza A (RT-PCR) NEGATIVE (NEGATIVE) 09/14/20 02:46 Influenza B (RT-PCR) NEGATIVE (NEGATIVE) 09/14/20 02:46 RSV (RT-PCR) NEGATIVE (NEGATIVE) 09/14/20 02:46 SARS-CoV-2 Rap RNA(RT-PCR) NEGATIVE (NEGATIVE) 09/14/20 02:46 Slides for Path Review PATHOLOGIST REVIEWED 09/15/20 05:37 Impressions: Abdomen/Pelvis CT 09/13/20 23:57 IMPRESSION: Status post cholecystectomy. Inflammatory changes in the gallbladder fossa may reflect postcholecystectomy state. Small fluid collection in the immediate subhepatic space could reflect seroma, biloma, or abscess. Findings again suggestive of mild pancreatitis/duodenitis. Multiple nonobstructing renal calculi bilaterally. Fatty infiltrative change to the liver TECHNICAL DOCUMENTATION: Quality ID # [id number]: Final reports with documentation of one or more dose reduction techniques (e.g., Automated exposure control, adjustment of the mA and/or kV according to patient size, use of iterative reconstruction technique) copyright 2011 [employer]- All Rights Reserved Abdomen MRI 09/14/20 03:00 IMPRESSION: 1. Normal CBD and intrahepatic caliber without intraluminal defect suggestive of choledocholithiasis. 2. Ill-defined peripancreatic stranding and fluid about the pancreatic head suggestive of pancreatitis. Pancreatic duct is mildly dilated at the head measuring 4.3 mm, stable. 3. Status post cholecystectomy. Stable small volume fluid within the gallbladder fossa and along the right hepatic tip. No discrete drainable collection.
== END 2020-09-17 13:30 | disposition home or self-care (01) | DRG 439 ==
LOC: ER 19:21 → EH 09-14 10:46 → 5 09-14 12:48
PROVIDERS: ATTEND Surgery
DX: K86.1 Other chronic pancreatitis (principal); N17.9 Acute kidney failure, unspecified; D72.829 Elevated white blood cell count, unspecified; I10 Essential (primary) hypertension; K21.9 Gastro-esophageal reflux disease without esophagitis; Z90.49 Acquired absence of other specified parts of digestive tract; Z88.8 Allergy status to other drugs, medicaments and biological substances
CPT/HCPCS: 36415; 74177; 74181; 80048; 80053; 80076; 81001; 83690; 85025; 87040; 96361; 96365; 96375; 99285; 0241U; C9803; J0295; J2270; J2405; J2543; J3480; J7030; J7050; S0028